=== PATIENT | male | born 1985 | race Caucasian/White ===

== ENCOUNTER 2023-11-13 16:21 | Emergency (ER) | payer MEDICAID, SELFPAY ==
[2023-11-13 16:43] VITALS: BP 152/98; PULSE 91; TEMP 37.2; O2SAT 97; BMI 48.4
--- NOTE | 2023-11-13 16:52 | ED_ITS ---
HPI HPI - General Adult General Chief complaint: Extremity Problem, Nontraumatic Stated complaint: EDEMA Time Seen by Provider: 11/13/23 16:30 Source: patient and family Mode of arrival: walk-in Limitations: no limitations History of Present Illness HPI narrative: Patient is a 38-year-old male who presents to the emergency department for second opinion of redness and warmth to the right lower extremity. He states he noticed redness and warmth 4 days ago to the Right anterior calf. He states he feels tightness in the posterior calf but there has been no redness, open wounds or red streaking. He denies fevers, chills, nausea, vomiting. They went to the [facility] emergency department last night where the patient had blood work and an ultrasound was ordered for this morning. He states he completed the ultrasound this morning but there is no report that has been finalized with the patient is concerned that he has a blood clot and would like a second opinion. He was prescribed Keflex which she started today. No falls or injuries. Family member states that they were unable to see the PCP due to the physician being ill which prompted them to come to the ER. He states he has been looking at the images of the ultrasound himself and believes that there is a blood clot. Related Data Home Medications ?Medication ?Instructions ?Recorded ?Confirmed atorvastatin 10 mg tablet 10 mg PO QDAY 11/13/23 11/13/23 bupropion HCl 150 mg 24 hr tablet, 300 mg PO QDAY 11/13/23 11/13/23 extended release cephalexin 500 mg capsule 500 mg PO Q8H 11/13/23 11/13/23 cyclobenzaprine 10 mg tablet 10 mg PO .hs 11/13/23 11/13/23 hydroxyzine HCl 25 mg tablet 25 mg PO TID PRN anxiety 11/13/23 11/13/23 ibuprofen 800 mg tablet 800 mg PO Q8H PRN pain 11/13/23 11/13/23 lamotrigine 25 mg tablet 50 mg PO Q12H 11/13/23 11/13/23 Allergies Allergy/AdvReac Type Severity Reaction Status Date / Time No Known Drug Allergies Allergy Verified 11/13/23 16:38 Opioid HPI Opioid Management Most Recent Opioid Data: No Data to Display Review of Systems ROS Constitutional Denies: fever or chills Ears, nose, mouth, and throat Denies: throat pain Cardiovascular Denies: chest pain Gastrointestinal Denies: nausea or vomiting Musculoskeletal Reports: extremity pain; Denies: back pain Integumentary/Breast Reports: rash, redness, skin pain and skin tenderness Neurological Denies: headache Hematologic/Lymphatic Denies: easy bruising or easy bleeding Exam Narrative Exam Narrative: Gen.: Awake, alert, in no distress Head: Normocephalic, atraumatic ENT: Moist mucous membranes Respiratory: No respiratory distress Extremities: Moves extremities equally, Right lower extremity with faint blanching erythema over the right anterior tibia. There is no circumferential erythema. There is a healing scabbed wound approximately 2 cm in diameter to the right proximal tibia. No scabbing, erythema or drainage. Posterior right calf is firm but not rigid, compressible. Psych: Normal mood and affect Neuro: No focal neuro deficit Skin: Warm, dry, intact Constitutional Vital Signs, click to edit/add: Last Vital Signs Temp 99 F 11/13/23 16:43 Pulse 91 H 11/13/23 16:43 Resp 16 11/13/23 16:43 BP 152/98 H 11/13/23 16:43 Pulse Ox 97 11/13/23 16:43 O2 Del Method Room Air 11/13/23 16:43 Course Vital Signs Vital signs: Vital Signs Temperature 99 F 11/13/23 16:43 Pulse Rate 91 H 11/13/23 16:43 Respiratory Rate 16 11/13/23 16:43 Blood Pressure 152/98 H 11/13/23 16:43 Pulse Oximetry 97 11/13/23 16:43 Oxygen Delivery Method Room Air 11/13/23 16:43 Temperature 99 F 11/13/23 16:43 Pulse Rate 91 H 11/13/23 16:43 Respiratory Rate 16 11/13/23 16:43 Blood Pressure 152/98 H 11/13/23 16:43 Pulse Oximetry 97 11/13/23 16:43 Oxygen Delivery Method Room Air 11/13/23 16:43 Medical Decision Making MDM Narrative Medical decision making narrative: Patient Kleine pain medication in the ER. Vital signs are stable. CBC and BMP obtained with no leukocytosis or bandemia. Patient with no circumferential erythema of the right lower extremity an ultrasound was obtained from [facility] showing no evidence of DVT in the right lower extremity or left common femoral vein. Patient was given a copy of this ultrasound report and given education and reassurance. Continue to elevate the right lower extremity, finish Keflex and follow-up with PCP. Patient reevaluated by attending physician prior to discharge Medical Records Medical records reviewed: Yes I reviewed the patient's medical records Lab Data Lab results reviewed: Yes I reviewed the patient's lab results Labs: Lab Results 11/13/23 Range/Units 16:58 WBC 9.3 (4.0-11.0) 10^3/uL RBC 4.34 L (4.70-6.10) 10^6/uL Hgb 13.4 L (14.0-18.0) g/dL Hct 40.7 L (42.0-54.0) % MCV 93.8 (80.0-94.0) fL MCH 30.9 (25.9-34.0) pg MCHC 32.9 (29.9-35.2) g/dL RDW 13.1 (11.0-15.0) % Plt Count 316 (150-450) 10^3/uL MPV 8.5 L (9.5-13.5) fL Neut % (Auto) 61.7 (43.0-75.0) % Lymph % (Auto) 22.5 (20.5-60.0) % [place] % (Auto) 9.4 (1.7-12.0) % Eos % (Auto) 5.4 (0.9-7.0) % Baso % (Auto) 0.8 (0.2-2.0) % Neut # (Auto) 5.7 (1.4-6.5) 10^3/uL Lymph # (Auto) 2.1 (1.2-3.8) 10^3/uL [place] # (Auto) 0.9 H (0.3-0.8) 10^3/uL Eos # (Auto) 0.5 (0.0-0.7) 10^3/uL Baso # (Auto) 0.1 (0.0-0.1) 10^3/uL Abs Immat Gran (auto) 0.02 (0.00-0.03) 10^3/uL Imm/Tot Granulo (auto) 0.2 (0.0-0.5) % Sodium 141 (136-145) mmol/L Potassium 4.3 (3.5-5.1) mmol/L Chloride 104 (98-107) mmol/L Carbon Dioxide 29.3 (21.0-32.0) mmol/L Anion Gap 12.0 BUN 16.0 (7.0-18.0) mg/dL Creatinine 0.95 (0.70-1.30) mg/dL Est GFR ( Amer) >60 (>=60) Est GFR (Non-Af Amer) >60 (>=60) BUN/Creatinine Ratio 16.8 Glucose 81 (74-106) mg/dL Calcium 9.6 (8.5-10.1) mg/dL Discharge Plan Discharge Stand Alone Forms: Portal Instructions Chief Complaint: Extremity Problem, Nontraumatic Clinical Impression: Cellulitis Patient Disposition: Home, Self-Care Time of Disposition Decision: 17:19 Condition: Good Prescriptions / Home Meds: No Action atorvastatin 10 mg tablet 10 mg PO QDAY bupropion HCl 150 mg tablet extended release 24 hr 300 mg PO QDAY hydroxyzine HCl 25 mg tablet 25 mg PO TID PRN (Reason: anxiety) ibuprofen 800 mg tablet 800 mg PO Q8H PRN (Reason: pain) lamotrigine 25 mg tablet 50 mg PO Q12H cyclobenzaprine 10 mg tablet 10 mg PO .hs cephalexin 500 mg capsule 500 mg PO Q8H Print Language: Latvian Instructions: Cellulitis (ED) Referrals: Radha Betancourt [facility] [Primary Care Provider] - 1 week
[2023-11-13 17:05] LABS: Basophils Absolute Auto 0.1 10^3/uL (0.0-0.1); Basophils Percent Auto 0.8 % (0.2-2.0); Eosinophils Absolute Auto 0.5 10^3/uL (0.0-0.7); Eosinophils Percent Auto 5.4 % (0.9-7.0); Hematocrit 40.7 % (42.0-54.0); Hemoglobin 13.4 g/dL (14.0-18.0); Immature Granulocytes Abs Auto 0.02 10^3/uL (0.00-0.03); Immature Granulocytes Pct Auto 0.2 % (0.0-0.5); Lymphocytes Absolute Auto 2.1 10^3/uL (1.2-3.8); Lymphocytes Percent Auto 22.5 % (20.5-60.0); Mean Corpuscular HGB Conc 32.9 g/dL (29.9-35.2); Mean Corpuscular Hemoglobin 30.9 pg (25.9-34.0); Mean Corpuscular Volume 93.8 fL (80.0-94.0); Mean Platelet Volume 8.5 fL (9.5-13.5); Monocytes Absolute Auto 0.9 10^3/uL (0.3-0.8); Monocytes Percent Auto 9.4 % (1.7-12.0); Neutrophils Absolute Auto 5.7 10^3/uL (1.4-6.5); Neutrophils Percent Auto 61.7 % (43.0-75.0); Platelet Count 316 10^3/uL (150-450); Red Blood Count 4.34 10^6/uL (4.70-6.10); Red Cell Distribution Width 13.1 % (11.0-15.0); White Blood Count 9.3 10^3/uL (4.0-11.0)
[2023-11-13 17:15] LABS: BUN Creatinine Ratio 16.8; Calcium 9.6 mg/dL (8.5-10.1); Carbon Dioxide 29.3 mmol/L (21.0-32.0); Chloride 104 mmol/L (98-107); Estimated GFR (African America >60 (>=60); Estimated GFR (Non-African Ame >60 (>=60); Glucose 81 mg/dL (74-106); Potassium 4.3 mmol/L (3.5-5.1); Sodium 141 mmol/L (136-145)
== END 2023-11-13 17:28 | disposition home or self-care (01) ==
PROVIDERS: Physician Assistant; Emergency Provider Emergency Medicine; PCP Nurse Practitioner
DX: L03.115 Cellulitis of right lower limb (principal)
CPT/HCPCS: 36415; 80048; 85025; 99283